=== PATIENT | male | born 1980 | race Caucasian/White ===

== ENCOUNTER 2021-08-30 08:53 | Emergency (ER) | payer MEDICAID, OTHER ==
[~2021-08-30] VITALS: Ht 180.3 cm; Wt 78.0 kg
[2021-08-30] MEDS ORDERED: HYDROCODONE/ACETAMINOPHEN 5/325MG TABLET PO ONE (09:45)
[2021-08-30 10:48] VITALS: BP 127/85
== END 2021-08-30 10:49 ==
LOC: ER 09:10
DX: G89.18 Other acute postprocedural pain (principal); M25.512 Pain in left shoulder; M25.522 Pain in left elbow; F41.9 Anxiety disorder, unspecified; F32.9 Major depressive disorder, single episode, unspecified; K21.9 Gastro-esophageal reflux disease without esophagitis; F17.290 Nicotine dependence, other tobacco product, uncomplicated
CPT/HCPCS: 73030; 73080; 99284